=== PATIENT | female | born 1990 | race African-American/Black ===

== ENCOUNTER 2017-08-04 15:22 | Emergency (ER) | payer SELFPAY ==
[2017-08-04 15:49] VITALS: BP 133/85; PULSE 76; TEMP 97.7; BMI 27.8
--- NOTE | 2017-08-04 15:53 | PDOC ---
Rapid Medical Evaluation Chief Complaint: Chest Pain Time Seen by Provider: 08/04/17 15:52 Medical Evaluation: Allergies Allergy/AdvReac Type Severity Reaction Status Date / Time No Known Allergies Allergy Verified 08/04/17 15:42 Vital Signs Temp Pulse Resp BP Pulse Ox 97.7 F 76 18 133/85 98 08/04/17 15:43 08/04/17 15:43 08/04/17 15:43 08/04/17 15:43 08/04/17 15:43 08/04/17 15:52 I have performed a brief in-person evaluation of this patient. The patient presents with a chief complaint of: headache for 1 month Pertinent physical exam findings: VSS, CN2-12 grossly intact I have ordered the following: UPT, UA, Tylenol The patient will proceed to the ED for further evaluation. Discharge Disposition - Diagnosis Headache - Referrals - Patient Instructions - Post Discharge Activity
[2017-08-04] MEDS ORDERED: ACETAMINOPHEN 500 MG TABLET (FP) PO ONE (15:54)
[2017-08-04] MEDS ORDERED: ACETAMINOPHEN 500 MG TABLET (FP) ONE (16:38)
[2017-08-04 16:48] LABS: HCG,QUALITATIVE URINE NEGATIVE
[2017-08-04 16:49] LABS: URINE APPEARANCE SLCLOUDY; URINE BILIRUBIN NEGATIVE (NEGATIVE); URINE BLOOD NEGATIVE (NEGATIVE); URINE COLOR YELLOW; URINE GLUCOSE (UA) NEGATIVE (NEGATIVE); URINE KETONE NEGATIVE (NEGATIVE); URINE LEUK ESTERASE TRACE (NEGATIVE); URINE NITRITE NEGATIVE (NEGATIVE); URINE PROTEIN NEGATIVE (NEGATIVE); URINE UROBILINOGEN NEGATIVE mg/dL (0.2-1.0)
--- NOTE | 2017-08-04 17:28 | PDOC ---
History of Present Illness - General Chief Complaint: Chest Pain Stated Complaint: MIGRAINES, CHEST PAIN Time Seen by Provider: 08/04/17 15:52 History Source: Patient Exam Limitations: No Limitations - History of Present Illness Initial Comments: 08/04/17 17:16 26-year-old female presents to the ED with complaints of generalized head pressure intermittently for the past month unrelieved with Motrin and Tylenol. Patient also complaining of left-sided chest pain that radiates down her left arm intermittently for the past 2 months. Patient denies palpitations, recent travel, recent injury, smoking history of familial cardiac history. 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 Patient states did not see her PMD and has an appointment next month with her for the above symptoms. Timing/Duration: intermittent Severity: mild Associated Symptoms: reports: chest pain, headaches Past History - Travel Traveled outside of the country in the last 30 days: No - Past Medical History Allergies/Adverse Reactions: Allergies Allergy/AdvReac Type Severity Reaction Status Date / Time No Known Allergies Allergy Verified 08/04/17 15:42 Home Medications: Ambulatory Orders NK [No Known Home Medication] 08/04/17 - Suicide/Smoking/Psychosocial Hx Smoking History: Never smoked Patient Lives Alone: No Review of Systems - Review of Systems Able to Perform ROS?: Yes Constitutional: No: Symptoms Reported HEENTM: No: Symptoms Reported Respiratory: No: Symptoms reported Cardiac (ROS): Yes: Chest Pain ABD/GI: No: Symptoms Reported : No: Symptoms Reported Musculoskeletal: No: Symptoms Reported Integumentary: No: Symptoms Reported Neurological: Yes: Headache Endocrine: No: Symptoms Reported Hematologic/Lymphatic: No: Symptoms Reported *Physical Exam - Vital Signs Last Vital Signs Temp Pulse Resp BP Pulse Ox 97.7 F 76 18 133/85 98 08/04/17 15:43 08/04/17 15:43 08/04/17 15:43 08/04/17 15:43 08/04/17 15:43 - Physical Exam General Appearance: Yes: Nourished, Appropriately Dressed. No: Apparent Distress HEENT: positive: EOMI, [place], TMs Normal, Pharynx Normal. negative: Pale Conjunctivae Respiratory/Chest: positive: Lungs Clear, Normal Breath Sounds. negative: Chest Tender, Respiratory Distress, Accessory Muscle Use Cardiovascular: positive: Regular Rhythm, Regular Rate. negative: Murmur Gastrointestinal/Abdominal: positive: Soft. negative: Tenderness Neurologic: positive: Normal Mood/Affect, Motor Strength 5/5 (ambulatory). negative: Sensory Deficit ED Treatment Course - ADDITIONAL ORDERS Additional order review: Laboratory Results 08/04/17 16:29 Urine HCG, Qual Negative - RADIOLOGY Radiology Studies Ordered: Category Date Time Status HEAD CT WITHOUT CONTRAST [CT] Stat CT Scan 08/04/17 17:01 Ordered - Medications Given in the ED: ED Medications Discontinued Medications Generic Name Dose Route Start Last Admin Trade Name Lavonne PRN Reason Stop Dose Admin Acetaminophen 1,000 mg 08/04/17 15:54 08/04/17 16:43 Tylenol - PO 08/04/17 15:55 1,000 mg ONCE ONE Administration Medical Decision Making - Medical Decision Making 08/04/17 17:35 Patient complains of generalized headache intimately for the past month and a half along with left sided chest pain which she describes as a sharp intermittent pain brought on by stress. Patient currently is asymptomatic of both. Patient with likely stress-related symptoms and tension headache and angina. Patient ordered for an EKG to rule out cardiac etiology. Patient also ordered for head CT to rule out intracranial pathology. Patient given Tylenol in RMe. 08/04/17 18:[address] negative for acute pathology. Patient to be discharged home with recommendations to follow up with her PCP as scheduled next month *DC/Admit/Observation/Transfer Diagnosis at time of Disposition: Headache - Discharge Dispostion Disposition: HOME Condition at time of disposition: Good - Referrals Referrals: Ignacio Forbes MD [Staff Physician] - - Patient Instructions Printed Discharge Instructions: DI for Hormonal and Tension Headaches Additional Instructions: May take Tylenol 975 mg with onset of headache. 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 - Post Discharge Activity
[2017-08-04 19:05] LABS: EPI CELLS MODERATE /HPF (FEW); URINE BACTERIA RARE /hpf (NONE SEEN); URINE MUCUS RARE
== END 2017-08-04 18:19 | disposition home or self-care (01) ==
LOC: JERFT 15:22
DX: R51 Headache (principal)
CPT/HCPCS: 70450-TC; 81003; 81015; 84703; 99281-25